=== PATIENT | male | born 1980 | race Caucasian/White ===

== ENCOUNTER 2023-01-06 21:50 | Emergency (ER) | payer BC, MEDICAID, OTHER ==
[2023-01-06] MEDS ORDERED: Lidocaine/Epineph/Tetracaine 3 ML Syringe TOP ONE (22:33)
[2023-01-06] MEDS ORDERED: Bacitracin Oint 1 GM U/D Packet TOP ONE (22:33)
[2023-01-06] MEDS ORDERED: Diphtheria,Pertussis(Acell),Tetanus Vaccine 0.5 ML Syringe IM ONE (23:06)
== END 2023-01-06 23:43 | disposition home or self-care (01) ==
LOC: JP.ED 21:50
DX: S93.401A Sprain of unspecified ligament of right ankle, initial encounter (principal); S93.601A Unspecified sprain of right foot, initial encounter; S90.811A Abrasion, right foot, initial encounter; Z79.899 Other long term (current) drug therapy; Z23 Encounter for immunization; X50.1XXA Overexertion from prolonged static or awkward postures, initial encounter
CPT/HCPCS: 73610; 73630; 90471; 90715; 99283; A9270

== ENCOUNTER 2024-10-28 08:17 | Emergency (ER) | payer OTHER ==
[2024-10-28] MEDS: Bacitracin Oint 1 GM U/D Packet TOP ONE (09:58)
[2024-10-28] MEDS: Acetaminophen 500 MG Tab PO ONE (09:59)
[2024-10-28] MEDS: Lidocaine 1% 20 ML MDV INJECT ONE (09:59)
== END 2024-10-28 10:07 | disposition home or self-care (01) ==
LOC: JP.ED 08:17
DX: S67.190A Crushing injury of right index finger, initial encounter (principal); I10 Essential (primary) hypertension; F17.200 Nicotine dependence, unspecified, uncomplicated; Z79.899 Other long term (current) drug therapy; Z79.890 Hormone replacement therapy; W23.0XXA Caught, crushed, jammed, or pinched between moving objects, initial encounter; Y99.0 Civilian activity done for income or pay
CPT/HCPCS: 12001; 73140; 99284; A9270